=== PATIENT | female | born 1955 | race Caucasian/White ===

== ENCOUNTER → 2017-10-01 12:57 | Outpatient (CLI) | payer MEDICARE, SELFPAY ==
--- NOTE | 2017-10-01 13:05 | RAD_ITS ---
STUDY: X-RAY - RIGHT SHOULDER REASON FOR EXAM: Female, 61 years old. Shoulder pain. TECHNIQUE: 2 view(s) of the shoulder. COMPARISON: None. FINDINGS: Normal glenohumeral articulation. Normal acromioclavicular joint. Normal acromion. Normal humeral head and visualized proximal humerus. There is periarticular soft tissue calcification consistent with a calcific tendinitis. Normal visualized pulmonary apex. RAD/Shoulder min 2 Views IMPRESSION: Calcific tendinitis. Electronically Signed: George Yanez MD at 15:27 EDT Tel [phone], Service support ,
== END ==
PROVIDERS: Family Provider Family Medicine; PCP Family Medicine; Visit Provider Anesthesiology Pain Medicine
DX: M25.511 Pain in right shoulder (principal)
CPT/HCPCS: 73030

== ENCOUNTER → 2017-10-29 11:18 | Outpatient (CLI) | payer MEDICARE, SELFPAY ==
[2017-10-29 12:25] LABS: Amphetamine Urine VISTA NEGATIVE (<1000 ng/mL); Barbiturate Urine VISTA NEGATIVE (< 200 ng/mL); Benzodiazepine Urine VISTA NEGATIVE (< 200 ng/mL); Cocaine Urine VISTA NEGATIVE (< 300 ng/mL); Ecstacy Urine VISTA NEGATIVE (< 500 ng/mL); Methadone Urine VISTA NEGATIVE (< 300 ng/mL); PCP Urine VISTA NEGATIVE (< 25 ng/mL); THC Urine VISTA NEGATIVE (< 50 ng/mL); Vista UDS pH Range 5
== END ==
PROVIDERS: Family Provider Family Medicine; PCP Family Medicine; Visit Provider Anesthesiology Pain Medicine
DX: F11.20 Opioid dependence, uncomplicated (principal)
CPT/HCPCS: 80307

== ENCOUNTER → 2018-03-11 11:19 | Outpatient (CLI) | payer MEDICARE, SELFPAY ==
--- NOTE | 2018-03-11 11:24 | RAD_ITS ---
STUDY: X-RAY RIGHT FOOT, FIRST TOE REASON FOR EXAM: Pain, great toe injury. TECHNIQUE: 3 view(s) of the toe were obtained. COMPARISON: None. FINDINGS: Normal metatarsal. Normal metatarsophalangeal (M.T.P) joint. Normal interphalangeal joint. Normal proximal and distal phalanges. There is soft tissue swelling. RAD/Toe(s) Min 2 Views IMPRESSION: Soft tissue swelling. No demonstrated fracture. Electronically Signed: Stoney Singh MD at 11:43 EDT Tel , Service support ,
== END ==
PROVIDERS: Family Provider Family Medicine; PCP Family Medicine; Visit Provider Family Medicine
DX: S99.929A Unspecified injury of unspecified foot, initial encounter (principal); X58.XXXA Exposure to other specified factors, initial encounter; Y93.9 Activity, unspecified; Y92.9 Unspecified place or not applicable; Y99.9 Unspecified external cause status
CPT/HCPCS: 73660

== ENCOUNTER → 2018-06-17 17:44 | Outpatient (CLI) | payer MEDICARE, SELFPAY ==
--- NOTE | 2018-06-17 18:02 | MRI_ITS ---
STUDY: MRI LUMBAR SPINE WITHOUT CONTRAST REASON FOR EXAM: Female, 62 years old. Worsening pain for 6 years TECHNIQUE: Standardized fat and water weighted pulse sequences were obtained in the sagittal and axial planes. COMPARISON: 07/15/2016 FINDINGS: T12-L1: Normal endplates. Normal disc height, hydration and morphology. Normal bilateral facet joints. Normal central canal and bilateral lateral recesses. Normal bilateral intervertebral neural foramina. Normal lumbar lordosis. There is no substantial scoliosis. Normal conus medullaris that terminates at the L1-2 level. L1-2: Normal endplates. Normal disc height, hydration and morphology. Normal bilateral facet joints. Normal central canal and bilateral lateral recesses. Normal bilateral intervertebral neural foramina. L2-3: Bulging annulus and bilateral facet hypertrophy with mild left foraminal stenosis. L3-4: Bulging annulus and central annular fissure with bilateral facet hypertrophy. Moderate central canal and severe left lateral recess stenoses. Mild bilateral foraminal stenoses. Mass effect on the transiting left L4 nerve root. This has progressed. L4-5: Bulging annulus and central annular fissure with bilateral facet and ligamentum flavum hypertrophy. Mild central canal and bilateral foraminal stenoses. L5-S1: Bulging annulus and bilateral facet hypertrophy with mild central canal and moderate bilateral foraminal stenoses. Normal visualized sacral ala. Normal visualized paraspinous soft tissue structures. MRI/Spine Lumbar (Routine) IMPRESSION: Multilevel degenerative disease as described. Severe left lateral recess stenosis at the L3-4 level, with mass effect on the transiting left L4 nerve root. This has progressed. Moderate bilateral foraminal stenoses at the L5-S1 level. Electronically Signed: Karel Mitchell MD at 5:19 EST Tel , Service support ,
== END ==
PROVIDERS: Family Provider Family Medicine; PCP Family Medicine; Referring Provider Anesthesiology Pain Medicine; Visit Provider Anesthesiology Pain Medicine
DX: M54.9 Dorsalgia, unspecified (principal); M79.606 Pain in leg, unspecified
CPT/HCPCS: 72148

== ENCOUNTER → 2018-10-27 17:25 | Outpatient (CLI) | payer MEDICARE, SELFPAY ==
[2018-10-27 18:29] LABS: Amphetamine Urine VISTA NEGATIVE (<1000 ng/mL); Barbiturate Urine VISTA NEGATIVE (< 200 ng/mL); Benzodiazepine Urine VISTA NEGATIVE (< 200 ng/mL); Cocaine Urine VISTA NEGATIVE (< 300 ng/mL); Ecstacy Urine VISTA NEGATIVE (< 500 ng/mL); Methadone Urine VISTA NEGATIVE (< 300 ng/mL); PCP Urine VISTA NEGATIVE (< 25 ng/mL); THC Urine VISTA NEGATIVE (< 50 ng/mL); Vista UDS pH Range 4
== END ==
PROVIDERS: Family Provider Family Medicine; PCP Family Medicine; Referring Provider Anesthesiology Pain Medicine; Visit Provider Anesthesiology Pain Medicine
DX: F11.20 Opioid dependence, uncomplicated (principal)
CPT/HCPCS: 80307

== ENCOUNTER → 2019-09-06 15:14 | Outpatient (CLI) | payer MEDICARE, SELFPAY | PROVIDERS: PCP Family Medicine; Referring Provider Family Medicine; Visit Provider Family Medicine | DX: J02.9 Acute pharyngitis, unspecified (principal) | CPT/HCPCS: 87070 ==

== ENCOUNTER → 2020-03-22 09:59 | Outpatient (CLI) | payer MEDICARE, SELFPAY ==
[2020-03-22 11:04] LABS: Amphetamine Urine VISTA NEGATIVE (<1000 ng/mL); Barbiturate Urine VISTA NEGATIVE (< 200 ng/mL); Benzodiazepine Urine VISTA NEGATIVE (< 200 ng/mL); Cocaine Urine VISTA NEGATIVE (< 300 ng/mL); Ecstacy Urine VISTA NEGATIVE (< 500 ng/mL); Methadone Urine VISTA NEGATIVE (< 300 ng/mL); PCP Urine VISTA NEGATIVE (< 25 ng/mL); THC Urine VISTA NEGATIVE (< 50 ng/mL); Vista UDS pH Range 6
== END ==
PROVIDERS: PCP Family Medicine; Referring Provider Anesthesiology Pain Medicine; Visit Provider Anesthesiology Pain Medicine
DX: F11.20 Opioid dependence, uncomplicated (principal)
CPT/HCPCS: 80307

== ENCOUNTER → 2020-06-18 16:54 | Outpatient (CLI) | payer MEDICARE, SELFPAY ==
--- NOTE | 2020-06-18 16:59 | MRI_ITS ---
STUDY: MRI CERVICAL SPINE WITHOUT CONTRAST REASON FOR EXAM: Female, 64 years old. pain neck and rt shoulder, chronic pain, pain injections no help now TECHNIQUE: Standardized fat and water weighted pulse sequences were obtained in the sagittal and axial planes. COMPARISON: CT of the cervical spine 01/29/2016 FINDINGS: Normal foramen magnum and brainstem-cervical cord junction. Normal craniovertebral junction. Normal anterior atlantoaxial articulation. Normal odontoid process. Normal cervical lordosis. Normal vertebral bodies and posterior osseous elements. C2-3: Normal endplates. Normal disc height, signal and morphology. Normal central canal and intervertebral neural foramina. C3-4: Normal endplates. Normal disc height, signal and tiny right posterolateral/foraminal disc protrusion. Normal central canal. Mild to moderate right neuroforaminal encroachment. C4-5: Normal endplates. Normal disc height, signal and morphology. Normal central canal and intervertebral neural foramina. C5-6: Postop changes status post anterior fusion.. Normal central canal and intervertebral neural foramina. C6-7: Normal endplates. Normal disc height, signal and morphology. Normal central canal and intervertebral neural foramina. C7-T1: Normal endplates. Normal disc height, signal and morphology. Normal central canal and intervertebral neural foramina. Normal cervical cord. Normal visualized soft tissue structures. MRI/Spine Cervical (Routine) IMPRESSION: Status post anterior fusion at C5-6. Mild to moderate right neuroforaminal encroachment at C3-4 secondary to tiny right posterolateral/foraminal disc protrusion Electronically Signed: Loco Esparza MD at 20:57 EST , Service support ,
== END ==
PROVIDERS: PCP Family Medicine; Referring Provider Anesthesiology Pain Medicine; Visit Provider Anesthesiology Pain Medicine
DX: M54.2 Cervicalgia (principal); M54.12 Radiculopathy, cervical region; M79.603 Pain in arm, unspecified
CPT/HCPCS: 72141

== ENCOUNTER → 2020-12-11 12:48 | Outpatient (CLI) | payer MEDICARE, SELFPAY ==
[2020-12-11 13:46] LABS: Amphetamine Urine VISTA NEGATIVE (<1000 ng/mL); Barbiturate Urine VISTA NEGATIVE (< 200 ng/mL); Benzodiazepine Urine VISTA NEGATIVE (< 200 ng/mL); Cocaine Urine VISTA NEGATIVE (< 300 ng/mL); Ecstacy Urine VISTA NEGATIVE (< 500 ng/mL); Methadone Urine VISTA NEGATIVE (< 300 ng/mL); PCP Urine VISTA NEGATIVE (< 25 ng/mL); THC Urine VISTA NEGATIVE (< 50 ng/mL); Vista UDS pH Range 5
== END ==
PROVIDERS: PCP Family Medicine; Referring Provider Anesthesiology Pain Medicine; Visit Provider Anesthesiology Pain Medicine
DX: F11.20 Opioid dependence, uncomplicated (principal)
CPT/HCPCS: 80307

== ENCOUNTER → 2021-01-08 08:35 | Outpatient (CLI) | payer MEDICARE, SELFPAY ==
--- NOTE | 2021-01-08 08:38 | BI_ITS ---
MAMMOGRAPHY - BILATERAL SCREENING REASON FOR EXAM: Female, 65 years old. Routine annual screening examination. PERTINENT HISTORY: Non-contributory. TECHNIQUE: Digital bilateral breast franky (3D mammographic acquisition) in the CC and MLO projections. 2-D mediolateral oblique (MLO) and craniocaudad (CC) views of both breasts were obtained. CAD: Full Field Digital Mammography with Computer Added Detection was performed. COMPARISON: Comparison is made with prior study of 09/02/2016 and 12/05/2014. FINDINGS: Breast Composition: There are scattered areas of fibroglandular density. There are no dominant masses or suspicious calcifications. No other significant abnormalities are identified. There has been no significant change since the prior study. BI/SCRN MAMM (CAD)W/FRANKY BILAT IMPRESSION: Stable bilateral screening mammogram. Yearly follow-up mammogram recommended. (A) ASSESSMENT CATEGORY: BIRADS Category 1: Negative. A letter regarding these results will be sent to the patient by the facility within 30 days. Approximately 10% of breast cancers are not detected by mammography. A normal mammogram should not delay biopsy of a clinically suspicious abnormality. [id number] Electronically Signed: George Yanez MD at 9:19 EDT , Service support ,
== END ==
PROVIDERS: PCP Family Medicine; Referring Provider Family Medicine; Visit Provider Family Medicine
DX: Z12.31 Encounter for screening mammogram for malignant neoplasm of breast (principal)
CPT/HCPCS: 77063; 77067

== ENCOUNTER 2021-09-04 16:56 | Outpatient (CLI) | payer MEDICARE, SELFPAY ==
[2021-09-04 17:34] LABS: Amphetamine Urine VISTA NEGATIVE (<1000 ng/mL); Barbiturate Urine VISTA NEGATIVE (< 200 ng/mL); Benzodiazepine Urine VISTA NEGATIVE (< 200 ng/mL); Cocaine Urine VISTA NEGATIVE (< 300 ng/mL); Ecstacy Urine VISTA NEGATIVE (< 500 ng/mL); Methadone Urine VISTA NEGATIVE (< 300 ng/mL); PCP Urine VISTA NEGATIVE (< 25 ng/mL); THC Urine VISTA NEGATIVE (< 50 ng/mL); Vista UDS pH Range 7
== END 2021-09-04 23:59 | disposition home or self-care (01) ==
LOC: LAB 16:57
PROVIDERS: PCP Family Medicine; Visit Provider Anesthesiology Pain Medicine
DX: F11.20 Opioid dependence, uncomplicated (principal)
CPT/HCPCS: 80307

== ENCOUNTER 2022-01-27 14:23 | Outpatient (RCR) | payer MEDICARE, SELFPAY ==
--- NOTE | 2022-01-29 09:38 | HP.OTFCE_ITS ---
Floor (Occasional 1-33% of Day): 25# Floor (Frequent 34-66% of Day): 12# Floor (Constant 67-100% of Day): NA Floor PDL: Light Knee (Occasional 1-33% of Day): 25# Knee (Frequent 34-66% of Day): 12# Knee (Constant 67-100% of Day): NA Knee PDL: Light Waist (Occasional 1-33% of Day): 20# Waist (Frequent 34-66% of Day): 10# Waist (Constant 67-100% of Day): NA Waist PDL: Light Shoulder (Occasional 1-33% of Day): 15# Shoulder (Frequent 34-66% of Day): 8# Shoulder (Constant 67-100% of Day): NA Shoulder PDL: Sedentary-Light Overhead (Occasional 1-33% of Day): 15# Overhead (Frequent 34-66% of Day): 8# Overhead (Constant 67-100% of Day): NA Overhead PDL: Sedentary-Light Comments: PHYSICAL DEMAND LEVEL for lifting at Floor/knee and waist high levels is LIGHT PHYSICAL DEMAND LEVEL. lifting at shoulder and overhead levels is a SEDENTARY-LIGHT PHYSICAL DEMAND LEVEL Bending: Occasional Ability (1-33% of day) Comments: with external support Squatting: Frequent Ability (34-66% of day) Comments: with external support Kneeling: Occasional Ability (1-33% of day) Comments: with external support Reaching out: Frequent Ability (34-66% of day) Reaching up: Occasional Ability (1-33% of day) Sitting: Frequent Ability (34-66% of day) Walking: Frequent Ability (34-66% of day) Standing: Occasional Ability (1-33% of day) Comments: shifting body wt or small steps Duration Sedentary Sedentary Light Light Light Medium Medium Medium Heavy Very Heavy Heavy Occasional (0-33% of day) Frequent (34-66% of day) Constant (67-100% of day) 10 # Negligible Negligible 15 # 8 # Negligible 20 # 10# Negli. 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 Pt states she had two shoulder sx many years ago and ended up with a neck sx in 2013 and did recover from this. Pt states a year later she fell four feet from a pool ladder and broke her neck pt was in neck brace for about 8 weeks. pt started to see pain mtg 7 years ago where she gets injection in right shoulder neck and lower back. ( pt had injection in right shoulder-neck and back last ). pt states she is does not work out but demo interest in starting silver sneakers and getting in the pool. Diagnoses: Back pain Symptoms: Low back pain. right shoulder pain. neck pain Pain: Pt states her currently 610 low back - pt states she took Tylenol with codeine and Mobic when she got off work- pt states does not appear to be working today. pt states her pain is manageable typically at 3-4/10. 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 pt states she left her job because she did not want to porcelain mixer one spot and work as a service bar cashier- so she left - her regional business development manager did call her back and will allow her to keep working ordering the Health and beauty supplies and stocking. initially they wanted a letter stating she could not porcelain mixer one spot. pt works 6 hours 4 days a week. 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 Pt states in 2011 or 2013 she was placed on Disability due to right shoulder and neck issues. Behavioral: pt cooperative throughout session and put good effort toward tasks asked. ADLS: Pt lives alone in a two story home with first floor entry- Pt states she is ind. with all ADLs and IADls - states she does laundry and other home mtg tasks as she is able. pt drives [employer]. and works part-time. ROM: pt demo ROM WNL Strength: peak force resistance. right shoulder flexion 4# left 11#. right shoulder extension 11# left 15#. right biceps 13# triceps 7#. left biceps 13# triceps 16#. right hip flexion 15# left 12.7#. right hamstring 13# left 15#. right quadricep 10# left 10#. pt demo with right shoulder flexion weakness - pt states this has been from her shoulder sx many years ago. Right Binder Roller Strength Average: 55.00 Right Binder Roller Strength Percentile: % unable to give mean due to above age Left Binder Roller Strength Average: 58.33 Left Binder Roller Strength Percentile: % unable to give mean due to above age Right Lateral Pinch Average: 10.00 Right Lateral Pinch Percentile: % unable to give mean due to above age Left Lateral Pinch Average: 10.00 Left Lateral Pinch Percentile: % unable to give mean due to above age Right Tripod Pinch Average: 10.66 Right Tripod Pinch Percentile: % unable to give mean due to above age Left Tripod Pinch Average: 8.00 Left Tripod Pinch Percentile: % unable to give mean due to above age Sensation: Denies Fine Motor: denies Balance: functional reach 5 (pt limited with low back pain). Norm for woman 41-69yrs. 14.9 ? 2.2. 13.8 ? 2.2. Interpretation: A score of 6 or less indicates a significant. increased risk for falls. A score between 6-10 inches indicates a. moderate risk for falls Bending: pt demo the ability to bend forward 3/3x, 10/10x with use of external support unable to perform 10x rapidly. low back pain 6/10. heart rate 72. occasional ability with external support Squatting: pt demo the ability to squat 3/3, 10/10 and 10/10 with increased speed with external support. heart rate 76. frequent ability with external support Kneeling: pt demo the ability to kneel 3/3, 10/10 with external support- due to back pain pt unable to kneel frequent ability. pt can kneel on occasional ability Reaching out/up: pt demo the ability to reach up 3/3 and 10/10 unable. reach out 3/3, 10/10 and 10/10 rapidly. heart rate 58 Walking: pt demo the ability to ambulate on a madsen reciprocal step pattern . Standing: pt demo the ability to stand for 2 min and 30 sec. after that pt began moving around room taking steps - standing 8 min prior to request to sitting. pt can stand on occasional ability as long as not required to porcelain mixer one spot. Sitting: pt demo the ability to sit for 20 min than noted pt initiated wt. shifting- and sat for another 20 min. pt can sit on a frequent ability with shifting body weight as needed. Climbing Stairs: pt demo the ability to ascend and descend 10 steps with use of handrail with good ability. Floor Lift: pt demo the ability to lift 25# maximally from this level with good lifting mechanics. Knee Lift: pt demo the ability to lift 25# maximally from this level with good lifting mechanics. Waist Lift: pt demo the ability to lift 20# maximally from this level with good lifting mechanics. Shoulder Lift: pt demo the ability to lift 15# maximally from this level with good lifting mechanics. Overhead Lift: pt demo the ability to lift 15# maximally from this level with good lifting mechanics. Carrying: pt demo the ability to carry 15# for 30 feet with good ability Comments: pt demo good lifting mechanics and would stop task if she became more painful. pt put good effort into her assessment.
--- NOTE | 2022-01-29 09:38 | HP.OTFCE.D ---
FCE D/C Summary - Discharge CONCEPCION UNDERWOOD was seen for a one time visit for an FCE on 01/27/22 and is discharged.
== END 2022-01-27 19:00 | disposition home or self-care (01) ==
LOC: OT 14:23
PROVIDERS: PCP Family Medicine; Referring Provider Anesthesiology Pain Medicine; Visit Provider Anesthesiology Pain Medicine
DX: M54.9 Dorsalgia, unspecified (principal)
CPT/HCPCS: 97750

== ENCOUNTER → 2022-05-22 | Outpatient (CLI) | payer MEDICARE, SELFPAY ==
[2022-05-22 15:15] LABS: Amphetamine Urine VISTA NEGATIVE (<1000 ng/mL); Barbiturate Urine VISTA NEGATIVE (< 200 ng/mL); Benzodiazepine Urine VISTA NEGATIVE (< 200 ng/mL); Cocaine Urine VISTA NEGATIVE (< 300 ng/mL); Ecstacy Urine VISTA NEGATIVE (< 500 ng/mL); Methadone Urine VISTA NEGATIVE (< 300 ng/mL); PCP Urine VISTA NEGATIVE (< 25 ng/mL); THC Urine VISTA NEGATIVE (< 50 ng/mL); Vista UDS pH Range 6
== END | disposition home or self-care (01) ==
PROVIDERS: PCP Family Medicine; Visit Provider Anesthesiology Pain Medicine
DX: F11.20 Opioid dependence, uncomplicated (principal)
CPT/HCPCS: 80307

== ENCOUNTER → 2022-10-28 | Outpatient (CLI) | payer MEDICARE, SELFPAY ==
--- NOTE | 2022-10-28 12:46 | BI_ITS ---
MAMMOGRAPHY - BILATERAL SCREENING REASON FOR EXAM: Female, 66 years old. Routine annual screening examination. PERTINENT HISTORY: Non-contributory. TECHNIQUE: Digital bilateral breast franky (3D mammographic acquisition) in the CC and MLO projections. 2-D mediolateral oblique (MLO) and craniocaudad (CC) views of both breasts were obtained. CAD: Full Field Digital Mammography with Computer Added Detection was performed. COMPARISON: Comparison is made with prior examination dated January 08, 2021 and September 02, 2016. FINDINGS: Breast Composition: There are scattered areas of fibroglandular density. There are no dominant masses or suspicious calcifications. No other significant abnormalities are identified. There has been no significant change since the prior study. BI/SCRN MAMM (CAD)W/FRANKY BILAT IMPRESSION: Stable bilateral screening mammogram. Yearly follow-up mammogram recommended. (A) ASSESSMENT CATEGORY: BIRADS Category 1: Negative. A letter regarding these results will be sent to the patient by the facility within 30 days. Approximately 10% of breast cancers are not detected by mammography. A normal mammogram should not delay biopsy of a clinically suspicious abnormality. [id number] Electronically Signed: George Yanez MD at 13:47 EDT ,
--- NOTE | 2022-10-28 12:53 | BD_ITS ---
STUDY: DUAL ENERGY X-RAY ABSORPTIOMETRY / DXA REASON FOR EXAM: Female, 66 years old. [id number] TECHNIQUE: Bone Mineral Density (BMD) measurements of lumbar spine and bilateral hips were obtained. COMPARISON: Comparison is made with prior study September 13, 2015. FINDINGS: Lumbar Spine (L1-L4): g/cm2 (0.844) / T-score (-1.6) / Z-score (0.3) Findings are suggestive of osteopenia with a moderate fracture risk. Left Femur Total: g/cm2 (0.757) / T-score (-1.5) / Z-score (-0.2) Left Femoral Neck: g/cm2 (0.693) / T-score (-1.4) / Z-score (0.2) Right Femur Total: g/cm2 (0.777) / T-score (-1.4) / Z-score (0.0) Right Femoral Neck: g/cm2 (0.714) / T-score (-1.2) / Z-score (0.4) The T-Scores on the most recent prior examination were: Lumbar Spine (L1-L4): There has been worsening of bone density since the previous examination. Left Femur Total: which represents a worsening of 9.4%. Right Femur Total: which represents a worsening of 4.5%. BD/Dexa Bone Density Study IMPRESSION: The patient is considered osteopenic as outlined below according to World Tray Organization (WHO) criteria with a moderate fracture risk. There has been worsening of bone density since the previous examination. Reference Information: The T-score is the number of standard deviations above or below the standard which is normal for young adults at their peak bone mineral density. The World Health Organization (WHO) interprets the T-scores as follows: Above -1 Normal bone density Between -1 and -2.5 Osteopenia Equal to / or below -2.5 Osteoporosis As a practical clinical guideline, osteopenia may be graded as follows: Mild -1 through -1.5 Moderate -1.6 through -2.0 Severe -2.1 through -2.4 The Z-score is the number of standard deviations above or below age-matched controls. A Z-score of less than -1.5 would be considered abnormal. References: 1. NIH Osteoporosis and Related Bone Diseases www osteo.org 2. International Society for Clinical Densitometry www iscd.org 3. National Osteoporosis Foundation www nof.org Electronically Signed: George Yanez MD at 12:09 EDT ,
== END | disposition home or self-care (01) ==
LOC: OPBD 12:45
PROVIDERS: PCP Family Medicine; Referring Provider Family Medicine; Visit Provider Family Medicine
DX: Z12.31 Encounter for screening mammogram for malignant neoplasm of breast (principal); M81.0 Age-related osteoporosis without current pathological fracture
CPT/HCPCS: 77063; 77067; 77080

== ENCOUNTER → 2022-10-30 | Outpatient (CLI) | payer MEDICARE, SELFPAY ==
[2022-10-30 10:48] LABS: Vitamin D,25 Hydroxy 34.2 ng/mL
[2022-10-30 10:52] LABS: Anion Gap 6 (5-15); BUN 33 mg/dL (7-18); BUN/Creat Ratio 52.3 RATIO (10-20); Calcium,Total 8.9 mg/dL (8.5-10.1); Chloride 106 mmol/L (98-107); Cholesterol 181 mg/dL (200); Creatinine, Serum 0.63 mg/dL (0.55-1.02); EST Glomerular Filtration Rate 100 mL/min (>60); Est Glom Filt Rate - Afr Amer 121 mL/min (>60); Glucose 96 mg/dL (74-106); High Density Lipoprotein 51 mg/dL; Potassium 3.9 mmol/L (3.5-5.1); Sodium Level 140 mmol/L (136-145); Triglycerides 55 mg/dL; Very Low Density Lipoprotein 11 mg/dL (5-40)
== END | disposition home or self-care (01) ==
LOC: LAB 09:49
PROVIDERS: PCP Family Medicine; Visit Provider Family Medicine
DX: Z00.00 Encounter for general adult medical examination without abnormal findings (principal); E55.9 Vitamin D deficiency, unspecified
CPT/HCPCS: 36415; 80048; 80061; 82306

== ENCOUNTER → 2023-03-31 | Outpatient (CLI) | payer MEDICARE, SELFPAY ==
--- NOTE | 2023-03-31 11:01 | NEURO ---
NCS and/or EMG Patient Report Ordering Doctor: Kulwant Saucedo DATE OF SERVICE: 03/31/23 Clinical Summary: 67 year old female presenting with numbness/tingling in both hands. This EMG/NCS was performed to evaluate for right and left carpal tunnel syndrome. Nerve Conduction Studies Summary: The right median-D2 SNAP distal latency was prolonged with reduced amplitude. The ulnar-D5 SNAP distal latency was prolonged bilaterally. The median motor conduction velocity was reduced in the forearm segment bilaterally. Needle Examination Summary: There was a higher proportion of motor unit action potentials with reduced recruitment, increased amplitude, increased duration, and polyphasia in the left C8 myotome, right C7 myotome, and right abductor pollicis brevis muscle. Impression: There is electrodiagnostic evidence of the following - 1) Severe, right median mononeuropathy at the wrist (carpal tunnel syndrome), with secondary motor fiber axonal loss 2) Chronic, right C7 radiculopathy 3) Chronic, left C8 radiculopathy There is no definite electrodiagnostic evidence of a left median mononeuropathy at the wrist (carpal tunnel syndrome) Multi Select Codes Neurology Neurology Interp Codes: 86954-84 Musc test done w/n test comp (interp) (2) and 02310-81 Nrv cndj test 13/> studies (interp)
== END | disposition home or self-care (01) ==
PROVIDERS: PCP Family Medicine; Referring Provider Anesthesiology Pain Medicine; Visit Provider Anesthesiology Pain Medicine
DX: G56.01 Carpal tunnel syndrome, right upper limb (principal)
CPT/HCPCS: 95886; 95913

== ENCOUNTER → 2023-07-28 | Outpatient (CLI) | payer MEDICARE, SELFPAY ==
--- NOTE | 2023-07-28 10:09 | RAD_ITS ---
STUDY: X-RAY - RIGHT KNEE REASON FOR EXAM: Female, 67 years old. RIGHT KNEE PAIN TECHNIQUE : 4 view(s) of the knee. COMPARISON: None. FINDINGS: There is demineralization of the visualized distal femur. There is demineralization of the tibia and fibula. Normal proximal tibiofibular articulation. There is mild degenerative arthrosis of the medial femorotibial compartment. There is mild degenerative arthrosis of the lateral femorotibial compartment. There is mild degenerative arthrosis of the patellofemoral articulation. There is visualized chondrocalcinosis involving the medial lateral compartments. The soft tissue structures are unremarkable. RAD/Knee 4 or More Views IMPRESSION: Degenerative change right knee. No visualized acute fracture. Chondrocalcinosis can be associated with calcium pyrophosphate disease, osteoarthritis aging process or hypercalcemic states. Electronically Signed: Jessica Morelos MD at 5:14 EST ,
== END | disposition home or self-care (01) ==
PROVIDERS: PCP Family Medicine; Referring Provider Anesthesiology Pain Medicine; Visit Provider Anesthesiology Pain Medicine
DX: M25.561 Pain in right knee (principal)
CPT/HCPCS: 73564

== ENCOUNTER → 2024-04-14 | Outpatient (CLI) | payer MEDICARE, SELFPAY ==
[2024-04-14 14:12] LABS: Amphetamine Urine VISTA NEGATIVE (<1000 ng/mL); Barbiturate Urine VISTA NEGATIVE (< 200 ng/mL); Benzodiazepine Urine VISTA NEGATIVE (< 200 ng/mL); Cocaine Urine VISTA NEGATIVE (< 300 ng/mL); Ecstacy Urine VISTA NEGATIVE (< 500 ng/mL); Methadone Urine VISTA NEGATIVE (< 300 ng/mL); PCP Urine VISTA NEGATIVE (< 25 ng/mL); THC Urine VISTA NEGATIVE (< 50 ng/mL); Vista UDS pH Range 5
== END | disposition home or self-care (01) ==
PROVIDERS: PCP Family Medicine; Referring Provider Anesthesiology Pain Medicine; Visit Provider Anesthesiology Pain Medicine
DX: F11.20 Opioid dependence, uncomplicated (principal)
CPT/HCPCS: 80307

== ENCOUNTER → 2024-05-26 | Outpatient (CLI) | payer MEDICARE, SELFPAY ==
--- NOTE | 2024-05-26 12:13 | LES_PTH ---
PATIENT: CONCEPCION UNDERWOOD LOC: [facility] U#:[id number] AGE/SX: 68/F ROOM: RE05/26/[address]: Dr. Reyes Caicedo MD : 1955 BED: DIS: 05/26/2024 SPEC #: [id number] RECD: 05/26/24 15:15 STATUS: SCOTT MITCH #: [id number] MARSHAL: 05/26/24 12:[address]: Reyes Caicedo DEPT: SURGICAL PATHOLOGY RECD BY: Aleksandra Mario Tissues: Skin of arm Procedures: Surgery Specimen Level IV HEADER OPERATION: Elliptieal excision biopsy right elbow neoplasm PRE-OP DIAGNOSIS: Right elbow skin, neoplasm TISSUE SUBMITTED: Right elbow skin MICROSCOPIC DIAGNOSIS Skin lesion of right elbow, shave biopsy: Squamous cell carcinoma in situ, keratoacanthomatous type. See comment 05/30/2024 COMMENT The lesion is transected at the base. Complete excision of the lesion is recommended if clinically indicated. MICROSCOPIC DESCRIPTION Slides are reviewed. GROSS DESCRIPTION Received is one container labeled with the patient's name and not further designated. The specimen consists of a light-marquez shave biopsy of skin measuring 1.2 x 1.2 x 0.5cm. The specimen is inked, serially sectioned and totally submitted in one cassette. 05/27/2024 TC:0 CPT:32154
== END | disposition home or self-care (01) ==
LOC: LABSPEC 15:28
PROVIDERS: PCP Family Medicine; Referring Provider Family Medicine; Visit Provider Family Medicine
DX: C44.622 Squamous cell carcinoma of skin of right upper limb, including shoulder (principal)
CPT/HCPCS: 88305

== ENCOUNTER → 2024-07-27 | Outpatient (CLI) | payer MEDICARE, SELFPAY ==
[2024-07-27 17:52] LABS: Absolute Lymphocyte Count 2.59 X10^3/uL (0.83-4.51); Absolute Neutrophil Count 4.1 X10^3/uL (2.0-7.7); Basophil# 0.06 X10^3/uL; Basophil% 0.8 % (0-1); Eosinophil# 0.14 X10^3/uL; Eosinophils% 1.9 % (0-5); Hematocrit 40.9 % (37-47); Hemoglobin 13.2 g/dL (12.0-15.0); Lymphocyte # 2.59 X10^3/ul (0.83-4.51); Mean Corp Hgb Conc 32.3 g/dL (32-36); Mean Platelet Vol. 9.1 fl (6.2-12.0); Monocyte# 0.51 X10^3/uL; Monocyte% 6.9 % (0-10); NRBC Flagged by Analyzer 0 % (0-5); Neutrophil # 4.07 X10^3/uL (2.7-7.7); Neutrophil % 55.1 % (47-70); Platelet Count 411 K/mm3 (150-450); RBC Distribution Width CV 13.9 % (11.6-14.6); RBC Distribution Width SD 47.8 fl (35.1-43.9); White Blood Count 7.4 K/mm3 (4.4-11.0)
[2024-07-27 18:11] LABS: Anion Gap 6 (5-15); BUN 19 mg/dL (7-18); BUN/Creat Ratio 34.7 RATIO (10-20); Calcium,Total 9.9 mg/dL (8.5-10.1); Chloride 105 mmol/L (98-107); Creatinine, Serum 0.55 mg/dL (0.55-1.02); EST Glomerular Filtration Rate 117 mL/min (>60); Est Glom Filt Rate - Afr Amer 142 mL/min (>60); Glucose 89 mg/dL (74-106); Potassium 3.8 mmol/L (3.5-5.1); Sodium Level 138 mmol/L (136-145); Troponin-I HS 8 pg/mL (3.0-54.0)
== END | disposition home or self-care (01) ==
LOC: MTLAB 16:01
PROVIDERS: PCP Family Medicine; Referring Provider Family Medicine; Visit Provider Family Medicine
DX: R07.9 Chest pain, unspecified (principal)
CPT/HCPCS: 36415; 80048; 84484; 85025

== ENCOUNTER → 2024-08-09 | Outpatient (CLI) | payer MEDICARE, SELFPAY ==
--- NOTE | 2024-08-09 09:47 | STRESSREP_ITS ---
Stress Test Report Date: 08/09/2024 Procedure: Exercise tolerance test/imaging study Indications: Chest pain Consent: Per the patient Procedure: The patient exercised on a Seamus protocol for 6 minutes and 1 second achieving a peak heart rate of 142 bpm (93% predicted maximal heart rate) with a peak blood pressure 158/82 mmHg and a peak MET capacity of 7.0 METs. The baseline ECG demonstrated sinus rhythm with nonspecific ST changes in inferior leads. The peak exercise ECG demonstrated exaggeration of baseline ST depressions. Occasional PVC noted. The functional capacity was considered good for age. Patient complained of mild chest pressure pretest which remained unchanged with exercise. The examination was discontinued secondary to target heart rate being achieved. The patient was injected with 11.9 mCi of technetium 99m Cardiolite and subsequently rest SPECT Cardiolite nuclear imaging was obtained in the horizontal long, vertical long, and short axis views. Post-exercise, the patient was injected with 34.7 mCi of technetium 99m Cardiolite and subsequently stress SPECT Cardiolite nuclear imaging was obtained in the horizontal long, vertical long, and short axis views. A gated Cardiolite study at peak stress was obtained. Rest and stress SPECT Cardiolite nuclear imaging status post realignment, normalization, and attenuation correction, demonstrates the appearance of relative uniform tracer uptake and myocardial perfusion appearing within normal limits. There is end systolic thickening and brightening. The gated Cardiolite study demonstrates myocardial thickening and inward wall motion. The reported LVEF is 59%. Impression: 1. Technically adequate (percent predicted maximal heart rate greater than 85%) exercise tolerance test 2. Peak exercise ECG nondiagnostic secondary to baseline abnormality 3. Occasional PVCs noted 4. Rest and stress SPECT Cardiolite nuclear imaging demonstrate relative unif orm tracer uptake and myocardial perfusion appearing within normal limits. 5. The gated Cardiolite study reports an LVEF of 59%. This note was generated with [employer] software. It may contain incorrect words, spelling, and punctuation that were not noted in checking the note before signing.
== END | disposition home or self-care (01) ==
LOC: CVS 06:42
PROVIDERS: PCP Family Medicine; Referring Provider Family Medicine; Visit Provider Family Medicine
DX: R07.9 Chest pain, unspecified (principal)
CPT/HCPCS: 78452; 93017; A9500; A4216

== ENCOUNTER → 2024-11-01 | Outpatient (CLI) | payer MEDICARE, SELFPAY ==
--- NOTE | 2024-11-01 09:11 | BI_ITS ---
EXAM: SCRN MAMM (CAD)W/FRANKY BILAT DATE: 11/01/2024 CLINICAL HISTORY: F, Age 68 y/o , ANNUAL SCREENING No family history. BREAST CANCER RISK ASSESSMENT: Not assessed. TECHNIQUE: Bilateral screening digital breast tomosynthesis with 2D and 3D images. Computer aided detection. COMPARISON: Prior exam(s) dated October 28, 2022.. FINDINGS: TISSUE DENSITY: The breast tissue is composed of scattered area of fibroglandular density. Bilateral Breast Mammographic Findings: I suspect a 1.1 cm x 0.7 cm well-defined nodule in the slightly upper lateral aspect of the right breast. Targeted sonographic correlation recommended. No cluster of microcalcification is seen. BI/SCRN MAMM (CAD)W/FRANKY BILAT IMPRESSION: OVERALL FINAL ASSESSMENT: BIRADS 0 Incomplete: Need additional imaging evaluati on and/or prior mammograms for comparison. RECOMMENDATION: Targeted sonographic correlation of the right breast as described. A letter with findings and recommendations will be mailed to the patient. Reading Location: [id number]
== END | disposition home or self-care (01) ==
LOC: OPBI 09:10
PROVIDERS: PCP Family Medicine; Referring Provider Family Medicine; Visit Provider Family Medicine
DX: Z12.31 Encounter for screening mammogram for malignant neoplasm of breast (principal)
CPT/HCPCS: 77063; 77067

== ENCOUNTER → 2024-11-03 | Outpatient (CLI) | payer MEDICARE, SELFPAY ==
--- NOTE | 2024-11-03 09:01 | US_ITS ---
PROCEDURE: BREAST LIMITED UNILATERAL 11/03/2024 REASON FOR EXAM: NODULE Questionable nodule on recent mammogram. TECHNIQUE: Targeted right breast ultrasound. COMPARISON: Prior mammogram dated November 01, 2024. FINDINGS: Right breast ultrasound was targeted to the lateral aspect of the right breast. The mammographic abnormality corresponds to a 1.5 cm x 1.5 cm x 0.8 cm hypoechoic nodule with a fatty hilum suggestive of a benign-appearing lymph node. This is at the 9 o'clock position of the breast at 6 cm from the nipple. US/Breast Limited Unilateral IMPRESSION: The mammographic abnormality corresponds to a 1.5 cm x 1.5 cm x 0.8 cm benign-a ppearing lymph node. Follow-up code: BI-RADS category 2. Reading Location: [id number]
== END | disposition home or self-care (01) ==
LOC: OPUS 09:00
PROVIDERS: PCP Family Medicine; Referring Provider Family Medicine; Visit Provider Family Medicine
DX: N63.11 Unspecified lump in the right breast, upper outer quadrant (principal)
CPT/HCPCS: 76642

== ENCOUNTER → 2024-12-29 | Outpatient (CLI) | payer MEDICARE, SELFPAY ==
[2024-12-29 16:25] LABS: Anion Gap 10 (5-15); BUN 21 mg/dL (4-19); BUN/Creat Ratio 33.9 RATIO (10-20); Calcium,Total 10.1 mg/dL (7.6-11.0); Carbon Dioxide 26.1 mmol/L (21.0-32.0); Chloride 104 mmol/L (98-108); Cholesterol 195 mg/dL (<=200); Glucose 93 mg/dL (70-99); Low Density Lipoprotein Calc. 130 mg/dL; Potassium 5.0 mmol/L (3.3-5.1); Triglycerides 90 mg/dL; Very Low Density Lipoprotein 18 mg/dL (5-40); Vitamin D,25 Hydroxy 31.6 ng/mL (30-100); cholesterol:hdl ratio screen 4.14
== END | disposition home or self-care (01) ==
LOC: MFPLAB 12:19
PROVIDERS: PCP Family Medicine; Referring Provider Family Medicine; Visit Provider Family Medicine
DX: E55.9 Vitamin D deficiency, unspecified (principal); E78.5 Hyperlipidemia, unspecified
CPT/HCPCS: 36415; 80048; 80061; 82306

== ENCOUNTER → 2025-01-10 | Outpatient (CLI) | payer MEDICARE, SELFPAY ==
--- NOTE | 2025-01-10 08:31 | BD_ITS ---
PROCEDURE: DEXA BONE DENSITY STUDY 01/10/2025 REASON FOR EXAM: F, age 69 y/o . TECHNIQUE: DEXA BONE DENSITY STUDY COMPARISON: DEXA scan 10/28/2022 FINDINGS: BMD and T-SCORES Lumbar spine: 0.849 g/cm2, T-score -1.5 Levels: L1 through L3 Change from prior: No significant change in BMD.. Left femoral neck: 0.642 g/cm2, T-score -1.9 Femoral neck comparison data not recommended for monitoring change. Prior T-score -1.4 Left total hip: 0.698 g/cm2, T-score -2.0 Change from prior: Statistically significant BMD decrease of 7.9%. Right femoral neck: 0.674 g/cm2, T-score -1.6 Femoral neck comparison data not recommended for monitoring change. Prior T-score -1.2 Right total hip: 0.753 g/cm2, T-score -1.6 Change from prior: No significant change in BMD.. The World Health Organization has defined the following categories based on bone density: Normal bone density: T-score equal to or greater than -1.0 Osteopenia: T-score between -1.0 and -2.5 Osteoporosis: T-score equal to or less than -2.5 FRAX (or Comparable) Fracture Risk Assessment: 10 Year Probability of Fracture: Major Osteoporotic Fracture: 11% Hip Fracture: 1.8% (Note: FRAX is not to be reported in setting of normal range bone density, osteoporosis on DEXA, known history of osteoporosis, prior osteoporotic hip or vertebral fracture, or for any patient undergoing pharmacological treatment for bone loss.) The National Osteoporosis Foundation (NOF) recommends pharmacological treatment for patients with a FRAX 10-year risk of 3% or higher for a hip fracture, or 20% or higher for a major osteoporotic fracture, to prevent osteoporosis and reduce fracture risk. The patient does not meet the pharmacological treatment recommendations for prevention of osteoporosis. BD/Dexa Bone Density Study IMPRESSION: OSTEOPENIA Reading Location: [id number]
[2025-01-10 10:30] LABS: Barbiturate Urine NEGATIVE (< 200 ng/mL); Benzodiazepine Urine NEGATIVE (< 200 ng/mL); PCP Urine NEGATIVE (< 25 ng/mL); THC Urine NEGATIVE (< 50 ng/mL)
== END | disposition home or self-care (01) ==
PROVIDERS: PCP Family Medicine; Referring Provider Family Medicine; Visit Provider Family Medicine
DX: M85.80 Other specified disorders of bone density and structure, unspecified site (principal); F11.20 Opioid dependence, uncomplicated; Z78.0 Asymptomatic menopausal state
CPT/HCPCS: 77080; 80307